=== PATIENT | male | born 1995 | race African-American/Black ===

== ENCOUNTER 2016-09-03 23:21 | Emergency (ER) | payer OTHER ==
[~2016-09-03] VITALS: Ht 182.9 cm; Wt 80.0 kg
[2016-09-04 00:25] VITALS: BP 135/82
== END 2016-09-04 01:54 | disposition home or self-care (01) ==
LOC: ER 23:21
DX: S39.94XA Unspecified injury of external genitals, initial encounter (principal); X58.XXXA Exposure to other specified factors, initial encounter; Y93.89 Activity, other specified; Y92.89 Other specified places as the place of occurrence of the external cause
CPT/HCPCS: 99282

== ENCOUNTER 2017-05-22 22:06 | Emergency (ER) | payer OTHER ==
[~2017-05-22] VITALS: Ht 185.4 cm; Wt 82.0 kg
[2017-05-23] MEDS ORDERED: KETOROLAC 60MG/2ML VIAL IM ONE (04:00)
[2017-05-23 04:13] LABS: BASOPHILS % 0.5 % (0.0-2.0); EOSINOPHILS % 1.1 % (0.0-5.0); HEMATOCRIT. 43.6 % (42.0-52.0); LYMPHOCYTES % 28.8 % (20.0-50.0); MEAN CORPUSCULAR HEMOGLOBIN 32.5 pg (28.0-32.0); MEAN CORPUSCULAR VOLUME 94.3 fL (80.0-94.0); MEAN PLATELET VOLUME 7.4 fl (7.4-10.4); MONOCYTES % 10.8 % (2.0-8.0); NEUTROPHILS % 58.8 % (40.0-76.0); PLATELET 365 x1000/uL (130-400); RED BLOOD CELL COUNT 4.62 mill/uL (4.7-6.1); RED CELL DISTRIBUTION WIDTH 12.8 % (11.6-14.6)
[2017-05-23 07:00] VITALS: BP 104/60
== END 2017-05-23 07:56 | disposition home or self-care (01) ==
LOC: ER 22:06
DX: R07.89 Other chest pain (principal); J06.9 Acute upper respiratory infection, unspecified
CPT/HCPCS: 36415; 71046; 84484; 85025; 85379; 93005; 96372; 99285; J1885; Z7610

== ENCOUNTER 2017-06-08 07:32 | Emergency (ER) | payer OTHER ==
[~2017-06-08] VITALS: Ht 182.9 cm; Wt 77.0 kg
[2017-06-08 08:11] LABS: BASOPHILS % 0.6 % (0.0-2.0); EOSINOPHILS % 0.9 % (0.0-5.0); HEMATOCRIT. 44.2 % (42.0-52.0); HEMOGLOBIN. 14.6 g/dL (14.0-18.0); LYMPHOCYTES % 29.2 % (20.0-50.0); MEAN CORPUSCULAR HEMOGLOBIN 31.4 pg (28.0-32.0); MEAN CORPUSCULAR VOLUME 94.8 fL (80.0-94.0); MEAN PLATELET VOLUME 7.1 fl (7.4-10.4); MONOCYTES % 8.2 % (2.0-8.0); NEUTROPHILS % 61.1 % (40.0-76.0); PLATELET 328 x1000/uL (130-400); RED BLOOD CELL COUNT 4.66 mill/uL (4.7-6.1); RED CELL DISTRIBUTION WIDTH 12.9 % (11.6-14.6)
[2017-06-08 08:17] LABS: CHLORIDE 108 mEq/L (98-107)
[2017-06-08 08:19] LABS: INR 1.1; PROTHROMBIN TIME 11.5 sec (9.4-11.6)
[2017-06-08 09:07] VITALS: BP 131/84
== END 2017-06-08 09:10 | disposition home or self-care (01) ==
LOC: ER 08:02
DX: R07.9 Chest pain, unspecified (principal)
CPT/HCPCS: 36415; 71045; 80053; 83880; 84484; 85025; 85610; 93005; 99285

== ENCOUNTER 2019-05-16 22:41 | Emergency (ER) | payer MEDICAID, OTHER ==
[~2019-05-16] VITALS: Ht 182.9 cm; Wt 87.8 kg
[2019-05-17] MEDS ORDERED: TETANUS, DIPHTHERIA, PERTUSSIS VAC/PF 0.5ML (>7YR OLD) IM ONE (01:15)
[2019-05-17] MEDS ORDERED: BACITRACIN ZINC OINT UDPKT TOP ONE (01:15)
[2019-05-17 01:55] VITALS: BP 127/82
== END 2019-05-17 02:02 | disposition home or self-care (01) ==
LOC: ER 22:41
DX: S61.012A Laceration without foreign body of left thumb without damage to nail, initial encounter (principal); W26.8XXA Contact with other sharp object(s), not elsewhere classified, initial encounter; Y93.89 Activity, other specified; Y92.89 Other specified places as the place of occurrence of the external cause; Y99.8 Other external cause status
CPT/HCPCS: 90471; 90715; 99283

== ENCOUNTER 2019-09-13 07:24 | Emergency (ER) | payer MEDICAID, MEDICARE ==
[~2019-09-13] VITALS: Ht 185.4 cm; Wt 80.0 kg
[2019-09-13 08:00] VITALS: BP 125/76
[2019-09-13] MEDS ORDERED: ACETAMINOPHEN 325MG TABLET PO ONE (08:00)
== END 2019-09-13 08:16 | disposition home or self-care (01) ==
LOC: ER 07:24
DX: J02.9 Acute pharyngitis, unspecified (principal); Z20.828 Contact with and (suspected) exposure to other viral communicable diseases
CPT/HCPCS: 99283; C9803; U0003; 99282

== ENCOUNTER 2020-09-11 19:19 | Emergency (ER) | payer MEDICAID, MEDICARE ==
[~2020-09-11] VITALS: Ht 185.4 cm; Wt 79.0 kg
[2020-09-11] MEDS ORDERED: IBUP-2028 MT (20:05)
[2020-09-11] MEDS ORDERED: TOPUD MT (20:05)
[2020-09-11] MEDS ORDERED: IBUPROFEN 600MG TABLET PO ONE (20:15)
[2020-09-11] MEDS ORDERED: ACETAMINOPHEN 325MG TABLET PO ONE (20:15)
[2020-09-11 20:37] VITALS: BP 130/78
== END 2020-09-11 20:42 | disposition home or self-care (01) ==
LOC: ER 20:03
DX: U07.1 COVID-19 (principal); B34.9 Viral infection, unspecified
CPT/HCPCS: 99283; C9803; U0003; U0005